=== PATIENT | female | born 1960 | race Caucasian/White ===

== ENCOUNTER → 2016-11-10 | Day surgery (SDC) | payer BC ==
[~2016-11-10] MED LIST: Lactated Ringers 1,000 ML IV SCH; Propofol 200 MG/20 ML SDV IV ONE
[2016-11-10 11:17] VITALS: BP 136/84
--- NOTE | 2016-11-13 07:58 | OR ---
DATE OF OPERATION: 11/10/2016 PREOPERATIVE DIAGNOSIS: ALTERED BOWEL HABITS. POSTOPERATIVE DIAGNOSIS: ALTERED BOWEL HABITS. SURGEON: Simon Alvarez MD PROCEDURE: FULL-LENGTH COLONOSCOPY WITH RANDOM BIOPSIES X4. ANESTHESIA: SUPPLY CHAIN GENERALIST due to obesity and hypertension. COMPLICATIONS: None. SPECIMEN: Biopsies x4, random. FINDINGS: 1. Full-length colonoscopy. 2. Mild sigmoid diverticulosis. RECOMMENDATIONS: Medical followup for pathology reports. INDICATIONS: The patient has been having ongoing issues with diarrhea stools. We elected to proceed with colonoscopy as patient has never had one. DESCRIPTION OF PROCEDURE: The patient was prepped and draped, placed in left lateral decubitus position. A lubricated Olympus colonoscope was inserted and easily advanced to the cecum. Direct visualization of the ileocecal valve and appendiceal orifice was accomplished. Bowel prep was excellent. Upon withdrawal of scope, throughout the entire length of the colon, I could find no signs of any polyps, mass, ulceration, or bleeding sites. No vascular abnormalities or signs of colitis. We did do random biopsies in the right transverse and sigmoid area x4 without any identifiable etiology of patient's diarrhea. She does have a few scattered diverticula in the sigmoid area, very mild in severity. The rectal vault was unremarkable. Retroflexion of scope in the rectum showed no anal lesions. Air was then suctioned. Scope was removed without complication. MARINO/TATYANA /[id number]
== END ==
LOC: CC.SDS 09:02
PROVIDERS: ATTEND Family Medicine
DX: K57.30 Diverticulosis of large intestine without perforation or abscess without bleeding (principal); K21.9 Gastro-esophageal reflux disease without esophagitis; F32.9 Major depressive disorder, single episode, unspecified; I10 Essential (primary) hypertension; Z88.1 Allergy status to other antibiotic agents; Z88.2 Allergy status to sulfonamides; Z88.8 Allergy status to other drugs, medicaments and biological substances; Z91.040 Latex allergy status; Z91.09 Other allergy status, other than to drugs and biological substances; J30.2 Other seasonal allergic rhinitis; Z79.899 Other long term (current) drug therapy; Z90.710 Acquired absence of both cervix and uterus; Z72.0 Tobacco use
CPT/HCPCS: 45380; J2704; J7120

== ENCOUNTER 2018-01-20 09:19 | Emergency (ER) | payer BC ==
[2018-01-20] MEDS ORDERED: Ondansetron 4 MG Tab.DIS PO ONE ×2 (09:20→10:46)
[2018-01-20 09:24] VITALS: BP 144/78
[2018-01-20 10:06] LABS: CHLORIDE,CL 106 mEq/L (98-106); SODIUM,NA 141 mEq/L (136-145)
[2018-01-20] MEDS ORDERED: Simethicone 80 MG Tab.Chew PO ONE (10:19)
--- NOTE | 2018-01-20 10:32 | EDM.PDOC ---
ED HPI GENERAL MEDICAL PROBLEM - General Chief Complaint: Gastrointestinal Problem Stated Complaint: STOMACH PAIN that started on and feels like a sharp pain and pt. points to RUQ. Denies having any vomiting or diarrhea. Had last BM today. Time Seen by Provider: 01/20/18 09:35 Source of Information: Reports: Patient History Limitations: Reports: No Limitations - History of Present Illness Onset: Gradual Onset Date: 01/17/18 Duration: Day(s):, Constant, Waxing/Waning Location: Reports: Abdomen Quality: Reports: Sharp Severity: Mild Improves with: Reports: None Worsens with: Reports: Eating Associated Symptoms: Reports: No Other Symptoms Abdominal Pain Score (Numeric/FACES): 10 - Related Data Allergies Allergy/AdvReac Type Severity Reaction Status Date / Time latex Allergy Mild Redness Verified 01/20/18 09:25 aspirin Allergy Nausea Verified 01/20/18 09:25 azithromycin Allergy Stomach Verified 01/20/18 09:25 [From Zithromax Z-Dalton] Upset ibuprofen [From Advil] Allergy Vomiting Verified 01/20/18 09:26 prednisone Allergy Other Verified 01/20/18 09:25 simvastatin [From Zocor] Allergy Stomach Verified 01/20/18 09:25 Upset solifenacin succinate Allergy Stomach Verified 01/20/18 09:25 [From Vesicare] Upset Opuonad-Qxw-Jzk Reductase Allergy Muscle Verified 01/20/18 09:25 Inhibitor Aches sulfamethoxazole Allergy Cannot Verified 01/20/18 09:25 [From Bactrim] Remember trimethoprim [From Bactrim] Allergy Cannot Verified 01/20/18 09:25 Remember seasonal allergies Allergy Intermediate Irritabilit Uncoded 01/20/18 09:25 y paper tape Allergy Mild Redness Uncoded 01/20/18 09:25 Home Meds: Home Meds Cetirizine [ZyrTEC] 10 mg PO DAILY 09/07/13 [History] Lisinopril [Zestril] 20 mg PO DAILY 09/07/13 [History] Omeprazole [priLOSEC OTC] 20 mg PO DAILY 09/07/13 [History] PARoxetine [Paxil] 20 mg PO DAILY 09/07/13 [History] Azelastine HCl 1 spray KADY DAILY 08/10/15 [History] cycloSPORINE [Restasis] 1 drop EYEBOTH BID 08/10/15 [History] Fluticasone Propionate [Flonase] 2 spray NASBOTH DAILY #1 bottle 08/13/15 [Rx] Past Medical History HEENT History: Reports: Other (See Below) Other HEENT History: chronic dry eyes-receves eye drops Cardiovascular History: Reports: High Cholesterol, Hypertension Gastrointestinal History: Reports: GERD 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: Musculoskeletal History: Reports: Arthritis Endocrine/Metabolic History: Reports: None - Infectious Disease History Infectious Disease History: Reports: Shingles, C-Difficile - Past Surgical History GI Surgical History: Reports: Hernia, Abdominal Female Surgical History: Reports: Hysterectomy Social & Family History - Family History Family Medical History: Noncontributory HEENT: Reports: Cataract Cardiac: Reports: High Cholesterol, Hypertension, CA, Stent Respiratory: Reports: COPD Endocrine/Metabolic: Reports: Diabetes, type II Oncologic: Reports: Lymphoma - Tobacco Use Smoking Status *Q: Never Smoker ED ROS GENERAL - Review of Systems Review Of Systems: See Below Constitutional: Reports: No Symptoms HEENT: Reports: No Symptoms Respiratory: Reports: No Symptoms Cardiovascular: Reports: No Symptoms Endocrine: Reports: No Symptoms GI/Abdominal: Reports: Abdominal Pain : Reports: No Symptoms Musculoskeletal: Reports: No Symptoms Skin: Reports: No Symptoms Neurological: Reports: No Symptoms Psychiatric: Reports: No Symptoms Hematologic/Lymphatic: Reports: No Symptoms Immunologic: Reports: No Symptoms ED EXAM, GI/ABD - Physical Exam Exam: See Below Exam Limited By: No Limitations General Appearance: Alert, WD/WN, No Apparent Distress Throat/Mouth: Normal Inspection, Normal Lips, Normal Teeth, Normal Gums, Normal Oropharynx, Normal Voice, No Airway Compromise Head: Atraumatic, Normocephalic Neck: Normal Inspection, Supple, Non-Tender, Full Range of Motion Respiratory/Chest: No Respiratory Distress, Lungs Clear, Normal Breath Sounds, No Accessory Muscle Use, Chest Non-Tender Cardiovascular: Normal Peripheral Pulses, Regular Rate, Rhythm, No Edema, No Gallop, No JVD, No Murmur, No Rub GI/Abdominal Exam: Normal Bowel Sounds, Soft, No Organomegaly, No Distention, No Abnormal Bruit, No Mass, Pelvis Stable, Other (mild RUQ pain; no rebound.) Extremities: Normal Inspection, Normal Range of Motion, Non-Tender, No Pedal Edema, Normal Capillary Refill Neurological: Alert, Oriented, CN II-XII Intact, Normal Cognition, Normal Gait, No Motor/Sensory Deficits Psychiatric: Normal Affect, Normal Mood Skin Exam: Warm, Dry, Intact, Normal Color, No Rash Course - Vital Signs Text/Narrative:: Patient vomited small amount of yellow/ green vomitus. Afterward patient fell asleep, does not appear to be in any pain. Last Recorded V/S: Last Vital Signs Temp 36.3 C 01/20/18 09:22 Pulse 73 01/20/18 09:22 Resp 18 01/20/18 09:22 BP 144/78 H 01/20/18 09:22 Pulse Ox 97 01/20/18 09:22 - Orders/Labs/Meds Orders: Active Orders 24 hr Category Date Time Status Abdomen 2V AP Flat Upright [CR] Stat Exams 01/20/18 09:47 Taken Abdomen Pelvis w Cont [CT] Stat Exams 01/20/18 10:46 Taken CULTURE URINE [RM] Stat Lab 01/20/18 10:10 Received LIPASE [REF] Stat Lab 01/20/18 09:46 Stop Req Labs: Laboratory Tests 01/20/18 01/20/18 01/20/18 Range/Units 09:46 09:46 10:10 WBC 10.4 H (5.0-10.0) 10^3/uL RBC 4.41 (4.00-5.50) 10^6/uL Hgb 12.9 (12.0-16.0) g/dL Hct 40.1 (37.0-47.0) % MCV 90.9 (82.0-94.0) fL MCH 29.3 (27.0-32.0) pg MCHC 32.2 L (33.0-38.0) g/dL RDW Coeff of Becky 13.5 (11.0-15.0) % Plt Count 257 (150-400) 10^3/uL Neut % (Auto) 77.6 (35-85) % Lymph % (Auto) 16.9 (10-55) % [place] % (Auto) 4.9 (0-16) % Eos % (Auto) 0.3 (0-5) % Baso % (Auto) 0.3 (0-3) % Neut # (Auto) 8.04 H (1.80-7.00) 10^3/uL Lymph # (Auto) 1.75 (1.00-4.80) 10^3/uL [place] # (Auto) 0.51 (0.00-0.80) 10^3/uL Eos # (Auto) 0.03 (0.00-0.45) 10^3/uL Baso # (Auto) 0.03 10^3/uL Sodium 141 (136-145) mEq/L Potassium 4.3 (3.5-5.0) mEq/L Chloride 106 (98-106) mEq/L Carbon Dioxide 31 (21-32) mmol/L BUN 11 (7-18) mg/dL Creatinine 0.9 (0.6-1.0) mg/dL Est Cr Clr Drug Dosing 57.40 mL/min Estimated GFR (MDRD) > 60 (>=60) mL/min Glucose 131 H (75-99) mg/dL Calcium 8.8 (8.4-10.1) mg/dL Total Bilirubin 0.3 (0.0-1.0) mg/dL AST 14 L (15-37) U/L ALT 16 (12-78) U/L Alkaline Phosphatase 89 (46-116) U/L Total Protein 7.4 (6.4-8.2) g/dL Albumin 3.3 L (3.4-5.0) g/dL Amylase 49 (25-115) U/L Urine Color Yellow (YELLOW) Urine Appearance Slightly cloudy (CLEAR) Urine pH 5.5 (4.5-8.0) Ur Specific Grubbs >= 1.030 H (1.003-1.020) Urine Protein Trace H (NEGATIVE) mg/dL Urine Glucose (UA) Negative (NEGATIVE) mg/dL Urine Ketones Negative (NEGATIVE) mg/dL Urine Occult Blood Trace-intact H (NEGATIVE) Urine Nitrite Negative (NEGATIVE) Urine Bilirubin Negative (NEGATIVE) Urine Urobilinogen 0.2 (0.2-1.0) EU/dL Ur Leukocyte Esterase Moderate H (NEGATIVE) Urine RBC 0-5 (0-5) /HPF Urine WBC 40-50 H (0-5) /HPF Ur Squamous Epith Cells Few H (NOT SEEN) /HPF Urine Bacteria Few H (NOT SEEN) /HPF Urinalysis Comment Meds: Medications Discontinued Medications Generic Name Dose Route Start Last Admin Trade Name Freq PRN Reason Stop Dose Admin Ceftriaxone Sodium 1 gm 01/20/18 10:45 01/20/18 10:53 Rocephin IM 01/20/18 10:46 1 gm ONETIME ONE Administration Iopamidol 100 ml 01/20/18 13:38 01/20/18 13:49 Isovue-300 (61%) IVPUSH 01/20/18 13:39 100 ml ONETIME ONE Administration Ondansetron HCl 4 mg 01/20/18 10:46 01/20/18 10:53 Zofran Odt PO 01/20/18 10:47 4 mg ONETIME ONE Administration Simethicone 80 mg 01/20/18 10:19 01/20/18 10:28 Simethicone PO 01/20/18 10:20 80 mg ONETIME ONE Administration - Radiology Interpretation CT Results Date: 01/20/18 (No focal inflammatory changes abdomen or pelvis. At least 1 gallstone but no acute cholecystitis. Umbilical and periumbilical hernias.) CT Results Time: 14:35 Departure - Departure Time of Disposition: 14:36 Disposition: Home, Self-Care 01 Condition: Good Clinical Impression: Vomiting, UTI, Urinary tract infectious disease, Abdominal pain - Discharge Information *PRESCRIPTION DRUG MONITORING PROGRAM REVIEWED*: Not Applicable *COPY OF PRESCRIPTION DRUG MONITORING REPORT IN PATIENT ERIK: Not Applicable Instructions: Urinary Tract Infection, Adult, [id number], Abdominal Pain, Adult, [id number], Nausea and Vomiting, Adult Referrals: Simon Alvarez MD [Primary Care Provider] - Forms: ED Department Discharge Additional Instructions: Follow up with Dr. Alvarez on Sunday or Sunday, may need GI referral or EGD if abdomen pain persist. Take medications as directed. Return to ED if symptoms worsen. - Problem List & Annotations (1) Urinary tract infection SNOMED Code(s): 98042798 Code(s): N39.0 - URINARY TRACT INFECTION, SITE NOT SPECIFIED Status: Acute Current Visit: Yes (2) Abdominal pain SNOMED Code(s): 36712154 Code(s): R10.9 - UNSPECIFIED ABDOMINAL PAIN Status: Acute Current Visit: Yes (3) Vomiting SNOMED Code(s): 317562608 Code(s): R11.10 - VOMITING, UNSPECIFIED Status: Acute Current Visit: Yes - Problem List Review Problem List Initiated/Reviewed/Updated: Yes - My Orders Last 24 Hours: My Active Orders 01/20/18 09:46 LIPASE [REF] Stat 01/20/18 09:47 Abdomen 2V AP Flat Upright [CR] Stat 01/20/18 10:10 CULTURE URINE [RM] Stat 01/20/18 10:46 Abdomen Pelvis w Cont [CT] Stat - Assessment/Plan Last 24 Hours: My Active Orders 01/20/18 09:46 LIPASE [REF] Stat 01/20/18 09:47 Abdomen 2V AP Flat Upright [CR] Stat 01/20/18 10:10 CULTURE URINE [RM] Stat 01/20/18 10:46 Abdomen Pelvis w Cont [CT] Stat Assessment:: UTI, given Rocephin 1 gm IM. Given Keflex prescription. Abdominal pain, abdomen xray and CT negative for acute findings. May need EGD to R/O ulcer as source of pain. Vomiting may be secondary to UTI, given Zofran script. Discussed findings with patient and instructed her to f/u with Dr. Alvarez early this week if abdominal pain persists. Patient verbalizes understanding and agreement with plan.
[2018-01-20] MEDS ORDERED: cefTRIAXone 1 GM Vial IM ONE (10:45)
[2018-01-20] MEDS ORDERED: Iopamidol 612 MG/ML 100 ML Bottle IVPUSH ONE (13:38)
[2018-01-20] MEDS ORDERED: Take Home: Ondansetron 4 MG Tab.DIS, 2 Tab Pack PO ONE (14:45)
[2018-01-20] MEDS ORDERED: Albuterol/Ipratropium 3.0-0.5 MG/3 ML Neb Soln ONE (19:39)
== END 2018-01-20 14:53 | disposition home or self-care (01) ==
LOC: CC.ED 09:19
DX: N39.0 Urinary tract infection, site not specified (principal); R10.11 Right upper quadrant pain; E78.00 Pure hypercholesterolemia, unspecified; R11.10 Vomiting, unspecified; I10 Essential (primary) hypertension; K21.9 Gastro-esophageal reflux disease without esophagitis; Z91.040 Latex allergy status; Z88.8 Allergy status to other drugs, medicaments and biological substances; Z79.899 Other long term (current) drug therapy
CPT/HCPCS: 36415; 74019; 74177; 80053; 81001; 82150; 85025; 87086; 96372; 99284; A9270; J0696; Q9967; 83690

== ENCOUNTER 2018-01-22 11:01 | Observation (INO) | payer BC ==
[2018-01-22] MEDS ORDERED: Ondansetron 4 MG Tab.DIS PO PRN (11:42)
[2018-01-22] MEDS ORDERED: Temazepam 15 MG Cap PO PRN (11:42)
[2018-01-22 12:31] LABS: CHLORIDE,CL 103 mEq/L (98-106); SODIUM,NA 142 mEq/L (136-145)
[2018-01-22] MEDS: Sodium Chloride 0.9% 1,000 ML IV SCH ×2 (12:31→21:48)
[2018-01-22] MEDS: Pantoprazole 40 MG Vial IVPUSH SCH ×2 (12:33→20:06)
[2018-01-22] MEDS ORDERED: fentaNYL 100 MCG/2 ML SDV IM PRN (15:09)
[2018-01-22] MEDS ORDERED: Levofloxacin/Dextrose 5%-Water 500 MG in Premix Bag 1 BAG IV SCH (16:00)
[2018-01-22] MEDS: fentaNYL 100 MCG/2 ML SDV IV PRN ×2 (16:01→20:06)
[2018-01-22] MEDS: CYCLOSPORINE EYEBOTH SCH (20:05)
[2018-01-23] MEDS: Sodium Chloride 0.9% 1,000 ML IV SCH (05:23)
[2018-01-23] MEDS: **PTOM** Lisinopril 20 MG Tab PO SCH ×2 (07:32→07:35)
[2018-01-23] MEDS: CYCLOSPORINE EYEBOTH SCH ×2 (07:32→07:36)
[2018-01-23] MEDS: Pantoprazole 40 MG Vial IVPUSH SCH (07:33)
[2018-01-23 07:40] VITALS: BP 145/81
--- NOTE | 2018-01-23 22:03 | PCM.DCSUM1 ---
Discharge Summary - Hospital Course Free Text/Narrative:: Patient presented to clinic to see Dr. Alvarez for ongoing RUQ pain. Had been seen in the ER for same. Was placed on Ceftin for UTI and zofran for nausea. Had CT scan done in ER with no acute changes. Did have notable gallstone but no cholecystitis. Continues to have ongoing pain. Admitted for further work up to include labs, gallbladder ultrasound. IV fluids. Zofran for nausea. Diagnosis: Stroke: No Modified Lagro Scale: No Symptoms at All Modified Lagro Scale Score: 0 - Discharge Data Discharge Date: 01/23/18 Discharge Disposition: DC/Tfer to Other 70 Condition: Good - Patient Summary/Data Complications: none Hospital Course: Patient is stable this am. Does continue to have mild discomfort in RUQ. Did have elevated liver enzymes on admit, elevated CRP, felt related to cholelithiasis previoulsy noted on CT. Dr. Alvarez had consulted with surgeon at [facility] and arranged for cholecystectomy today. Lung sounds are clear. Heart rhythm regular. Low grade temp. Blood pressure stable. - Discharge Plan *PRESCRIPTION DRUG MONITORING PROGRAM REVIEWED*: No *COPY OF PRESCRIPTION DRUG MONITORING REPORT IN PATIENT ERIK: No Home Medications: Home Meds Cetirizine [ZyrTEC] 10 mg PO DAILY 09/07/13 [History] Lisinopril [Zestril] 20 mg PO DAILY 09/07/13 [History] Omeprazole [priLOSEC OTC] 20 mg PO DAILY 09/07/13 [History] PARoxetine [Paxil] 20 mg PO BEDTIME 09/07/13 [History] Azelastine HCl 1 spray KADY DAILY 08/10/15 [History] cycloSPORINE [Restasis] 1 drop EYEBOTH BID 08/10/15 [History] Fluticasone Propionate [Flonase] 2 spray NASBOTH BEDTIME 01/22/18 [History] Lisinopril 20 mg PO DAILY 01/22/18 [History] atorvaSTATin Calcium [Atorvastatin Calcium] 10 mg PO BEDTIME 01/22/18 [History] traZODone HCl [Trazodone HCl] 50 mg PO BEDTIME 01/22/18 [History] Referrals: Simon Alvarez MD [Primary Care Provider] - - Discharge Summary/Plan Comment DC Time >30 min.: No Discharge Summary/Plan Comment: Discharged to friend. Is to go to [facility] for cholecystectomy today as arranged per Dr. Alvarez yesterday. - General Info Date of Service: 01/23/18 Admission Dx/Problem (Free Text: Abdominal Pain Functional Status: Reports: Pain Controlled, Tolerating Diet, Ambulating - Review of Systems General: Denies: Fever, Weakness, Fatigue HEENT: Reports: No Symptoms Pulmonary: Denies: Shortness of Breath, Cough Cardiovascular: Denies: Chest Pain, Edema Gastrointestinal: Reports: Abdominal Pain, Constipation, Nausea. Denies: Vomiting Genitourinary: Reports: Frequency Musculoskeletal: Reports: No Symptoms Skin: Reports: No Symptoms Neurological: Reports: No Symptoms - Patient Data Vitals - Most Recent: Last Vital Signs Temp 98.7 F 01/23/18 07:39 Pulse 64 01/23/18 07:39 Resp 20 01/23/18 07:39 BP 145/81 H 01/23/18 07:39 Pulse Ox 99 01/23/18 07:39 Weight - Most Recent: 216 lb 14.4 oz I&O - Last 24 hours: Intake & Output 01/23/18 01/23/18 01/23/18 06:59 14:59 22:59 Intake Total 1198 Output Total 1050 Balance 148 Med Orders - Current: Current Medications Discontinued Medications Fentanyl (Sublimaze) 50 mcg IM Q4H PRN PRN Reason: Abdominal Pain Fentanyl (Sublimaze) 50 mcg IV Q4H PRN PRN Reason: Abdominal Pain Last Admin: 01/22/18 20:06 Dose: 50 mcg Sodium Chloride (Normal Saline) 1,000 mls @ 125 mls/hr IV ASDIRECTED [facility] Last Admin: 01/23/18 05:23 Dose: 125 mls/hr Levofloxacin/Dextrose 500 mg/ (Premix) 100 mls @ 100 mls/hr IV Q24H [facility] Last Admin: 01/22/18 16:05 Dose: 100 mls/hr Lisinopril (Prinivil) 20 mg PO DAILY [facility] Last Admin: 01/23/18 07:35 Dose: Not Given Ptom Cyclosporine [ Restasis] 1 Drop 1 drop EYEBOTH BID [facility] Last Admin: 01/23/18 07:36 Dose: Not Given Ondansetron HCl (Zofran Odt) 8 mg PO Q6H PRN PRN Reason: nausea, able to take PO Pantoprazole Sodium (Protonix Iv) 40 mg IVPUSH [phone] [facility] Last Admin: 01/23/18 07:33 Dose: 40 mg Temazepam (Restoril) 15 mg PO BEDTIME PRN PRN Reason: Sleep - Exam General: Reports: Alert, Oriented HEENT: Reports: Mucous Membr. Moist/[place] Neck: Reports: Supple Lungs: Reports: Clear to Auscultation, Normal Respiratory Effort Cardiovascular: Reports: Regular Rate, Regular Rhythm GI/Abdominal Exam: Normal Bowel Sounds, Soft, Tender (RUQ) Extremities: Normal Inspection, No Pedal Edema Skin: Reports: Warm, Dry
== END 2018-01-23 08:52 | disposition other institution (70) ==
LOC: CC.MS 11:01
PROVIDERS: ADMIT Family Medicine; ATTEND Family Medicine
DX: R10.11 Right upper quadrant pain (principal); K80.80 Other cholelithiasis without obstruction; I10 Essential (primary) hypertension; F32.9 Major depressive disorder, single episode, unspecified; K21.9 Gastro-esophageal reflux disease without esophagitis; Z88.6 Allergy status to analgesic agent; Z88.1 Allergy status to other antibiotic agents; Z88.8 Allergy status to other drugs, medicaments and biological substances; Z79.899 Other long term (current) drug therapy
CPT/HCPCS: 36415; 74018; 80053; 81001; 82150; 85025; 86140; 93005; A9270; C9113; J1956; J3010; J7030; 96361; 96365; 96375; 96376; G0378

== ENCOUNTER 2023-06-15 07:36 | Day surgery (SDC) | payer MEDICARE, BC ==
[2023-06-15] MEDS: Lactated Ringers 1,000 ML IV SCH (07:49)
[2023-06-15] MEDS ORDERED: fentaNYL 50 MCG/ML SDV ONE (08:15)
[2023-06-15] MEDS ORDERED: Propofol 200 MG/20 ML SDV ONE (08:15)
[2023-06-15 09:35] VITALS: BP 145/66; PULSE 70
== END 2023-06-15 09:36 | disposition home or self-care (01) ==
LOC: CC.SDS 07:36
PROVIDERS: ATTEND Family Medicine
DX: Z12.11 Encounter for screening for malignant neoplasm of colon (principal); D12.0 Benign neoplasm of cecum; D12.2 Benign neoplasm of ascending colon; D12.3 Benign neoplasm of transverse colon; K57.30 Diverticulosis of large intestine without perforation or abscess without bleeding; K63.5 Polyp of colon; F32.A Depression, unspecified; E78.00 Pure hypercholesterolemia, unspecified; K21.9 Gastro-esophageal reflux disease without esophagitis; I10 Essential (primary) hypertension; E03.9 Hypothyroidism, unspecified; L57.0 Actinic keratosis; E66.01 Morbid (severe) obesity due to excess calories; M81.0 Age-related osteoporosis without current pathological fracture; I45.9 Conduction disorder, unspecified; Z88.6 Allergy status to analgesic agent; Z79.899 Other long term (current) drug therapy; Z68.35 Body mass index [BMI] 35.0-35.9, adult
CPT/HCPCS: J2704; J3010; J7120